=== PATIENT | male | born 1985 | race Caucasian/White ===

== ENCOUNTER 2022-08-01 08:02 | Emergency (ER) | payer MEDICAID ==
[~2022-08-01] VITALS: Ht 167.6 cm; Wt 64.0 kg
[2022-08-01 09:45] LABS: BASOPHILS % 0.6 % (0.0-2.0); HEMATOCRIT. 48.9 % (42.0-52.0); HEMOGLOBIN. 17.4 g/dL (14.0-18.0); MEAN CORPUSCULAR HEMOGLOBIN 32.2 pg (28.0-32.0); MEAN CORPUSCULAR VOLUME 90.6 fL (80.0-94.0); MEAN PLATELET VOLUME 8.6 fl (7.4-10.4); MONOCYTES % 4.6 % (2.0-8.0); NEUTROPHILS % 78.8 % (40.0-76.0); PLATELET 222 x1000/uL (130-400); RED CELL DISTRIBUTION WIDTH 13.1 % (11.6-14.6)
[2022-08-01 10:03] LABS: CHLORIDE 109 mEq/L (98-107)
[2022-08-01 10:14] LABS: ETHANOL BLOOD < 10 mg/dL (-10)
[2022-08-01] MEDS ORDERED: AMOX-494 MT (10:43)
[2022-08-01] MEDS ORDERED: IBUP-2029 MT (10:43)
[2022-08-01] MEDS ORDERED: IBUPROFEN 600MG TABLET PO ONE (10:45)
[2022-08-01 11:03] VITALS: BP 129/85
== END 2022-08-01 10:59 | disposition home or self-care (01) ==
LOC: ER 08:02
DX: R56.9 Unspecified convulsions (principal); Z86.59 Personal history of other mental and behavioral disorders
CPT/HCPCS: 36415; 70450; 70486; 71045; 80053; 80320; 85025; 93005; 99285; Z7610; G0480